=== PATIENT | female | born 1965 | race Caucasian/White ===

== ENCOUNTER → 2017-06-11 | Outpatient (CLI) | payer BC ==
[~2017-06-11] MED LIST: CALC-494 PO; CALC200T5 PO; CALCIUM CITRATE PO; CYAN1KIT3 INJ; ERGO1CAP35 PO; FERRTAB18 PO; KETO10TA PO; MECL1TAB42 PO; MISO100T PO; MULT-1027; MULT-506 PO; ONDA4TAB46 PO; PHEN15CA PO; PRED20TA PO; PREDPOW63 PO; PRLSR20 PO; RANI300T2 PO; TOPI200T6 PO; TOPI25TA10 PO; TOPI25TA99 PO; ZOLP10TA6 PO; [UNRECOGNIZED DRUG - CODE] PO
--- NOTE | 2017-06-11 10:15 | DIAGNOSTIC IMAGING REPORT ---
(BARIUM SWALLOW) ESOPHAGUS CLINICAL HISTORY: SORE THROAT, R/O ESOPHAGEAL DYSMOTILITY/SPASM COMPARISON STUDY: None. FLUOROSCOPY TIME: 1.5 minutes. FINDINGS: Esophageal motility was normal. No esophageal mass or stricture was identified. There are consistent with Anamika-en-Y gastric bypass. The gastrojejunal anastomosis is patent. No contrast extravasation was identified. No reflux was elicited. No definite hiatal hernia was identified. IMPRESSION: Unremarkable barium swallow status post Anamika-en-Y gastric bypass. Electronically signed by: uYng Oconnell M.D. 06/11/2017 10:14 AM Dictated Date/Time: 06/11/2017 9:51 AM
== END | disposition home or self-care (01) ==
LOC: C.RAD 09:17
PROVIDERS: ATTEND Nurse Practitioner
DX: J02.9 Acute pharyngitis, unspecified (principal); Z98.84 Bariatric surgery status

== ENCOUNTER 2018-01-31 11:41 | Observation (INO) | payer BC ==
[~2018-01-31] VITALS: Ht 160 cm; Wt 65.3 kg
[~2018-01-31 11:41] MED LIST changes: -CALC-494 PO; -CALC200T5 PO; -CYAN1KIT3 INJ; -FERRTAB18 PO; -MECL1TAB42 PO; -ONDA4TAB46 PO; -PHEN15CA PO; -PRED20TA PO; -TOPI200T6 PO; -TOPI25TA10 PO; -ZOLP10TA6 PO; -[UNRECOGNIZED DRUG - CODE] PO
[2018-01-31] MEDS ORDERED: SODIUM CHLORIDE 0.9% 500ML 500 ML IV STA (12:09)
[2018-01-31] MEDS ORDERED: CALC200T5 PO (12:15)
[2018-01-31] MEDS ORDERED: [UNRECOGNIZED DRUG - CODE] PO (12:15)
[2018-01-31] MEDS ORDERED: MULT-506 PO (12:15)
[2018-01-31] MEDS ORDERED: TOPI25TA10 PO (12:15)
[2018-01-31] MEDS ORDERED: ONDA4TAB46 PO (12:15)
[2018-01-31] MEDS ORDERED: KETO10TA PO (12:15)
[2018-01-31] MEDS ORDERED: PRLSR20 PO (12:15)
[2018-01-31] MEDS ORDERED: PRED20TA PO (12:15)
[2018-01-31] MEDS ORDERED: RANI300T2 PO (12:15)
--- NOTE | 2018-01-31 12:21 | EMERGENCY ROOM VISIT NOTE ---
History Report prepared by Salena: Dawson Veloz Under the Supervision of: Dr. Artur Teague M.D. First contact with patient: 11:57 Chief Complaint: SHORTNESS OF BREATH Stated Complaint: SOB History of Present Illness The patient is a 52 year old female who presents to the Emergency Room with complaints of intermittent shortness of breath beginning today. The patient reports that her symptoms are worsened with exertion, such as using stairs or lifting her arms. She denies current chest pain, fevers, chills, nausea, vomiting, rectal or vaginal bleeding, trauma, or urinary symptoms. She denies a history of blood clots in her lungs or legs. She notes a gastric bypass 7 years ago, and states that she received an iron infusion 6 months ago. Source of History: patient Onset: today Position: other (lungs) Quality: other (SOB) Timing: intermittent Modifying Factors (Relieving): exertion (using stairs, lifting arms) Associated Symptoms: No fevers, No chills, No chest pain, No nausea, No vomiting, No urinary symptoms Note: denies rectal bleeding or trauma Review of Systems See HPI for pertinent positives and negatives. A total of ten systems were reviewed and were otherwise negative. Past Medical & Surgical Medical Problems: (1) GERD (gastroesophageal reflux disease) (2) Hypermenorrhea (3) Iron deficiency anemia (4) Migraines (5) Vertigo (6) Vitamin D deficiency Surgical Problems: (1) History of gastric bypass Family History Cancer Diabetes mellitus FHx: gallbladder disease Heart disease Hypertension Social History Smoking Status: Never Smoker Marital Status: Occupation Status: employed Current/Historical Medications Scheduled Calcium Citrate-Vitamin D (Calcium Citrate + D3 200-250 mg-Unit), 1 TAB PO BID Cyanocobalamin (B-12 Compliance Injection), 1 DOSE INJ MONTHLY Ergocalciferol (Drisdol), 50,000 UNITS PO WK Iron-Vitamin C (Vitron-C), 1 TAB PO DAILY Multivitamin (Multivitamin), 1 TAB PO BID Omeprazole (Prilosec), 20 MG PO DAILY Prednisone (Prednisone), 1 DOSE PO UD Ranitidine (Zantac), 300 MG PO HS Topiramate (Topamax), 75 MG PO HS Scheduled PRN Ketorolac (Toradol), 10 MG PO UD PRN for Migraine Meclizine Hcl (Meclizine Hcl), 2 TAB PO TID PRN for Dizziness or Vertigo Ondansetron Hcl (Zofran), 1 TAB PO UD PRN for Nausea Phentermine Hcl (Phentermine Hcl), 1 CAP PO DAILY PRN for appetite Zolpidem Tartrate (Zolpidem Tartrate), 1 TAB PO HS PRN for Insomnia Allergies Coded Allergies: Conjugated Estrogens (Unverified Allergy, Intermediate, RASH, 01/31/18) Hydrocodone (Unverified Allergy, Intermediate, GI SYMPTOMS, 01/31/18) Codeine (Unverified Allergy, Unknown, NAUSEA AND VOMITING,DIZZY, 01/31/18) Physical Exam Vital Signs Date Time Temp Pulse Resp B/P (MAP) Pulse Ox O2 Delivery O2 Flow Rate FiO2 01/31/18 14:39 89 17 116/78 100 Room Air 01/31/18 13:40 86 115/84 100 Room Air 01/31/18 12:27 100 Room Air 01/31/18 12:25 86 01/31/18 12:07 100 Room Air 01/31/18 11:43 36.6 90 18 124/88 100 Room Air Physical Exam GENERAL: Awake, alert, mild pallor. NAD HENT: Normocephalic, atraumatic. EYES: Normal conjunctiva. Sclera non-icteric. PERRL. No anisocoria. NECK: Supple. No nuchal rigidity. FROM. RESPIRATORY: CTAB, no rhonchi, wheezing, crackles CARDIAC: RRR, no MRG ABDOMEN: Soft, NTND, BS+ MSK: No chest wall TTP, trace pretibial LE edema B/L. Negative Homans's sign. NEURO: GCS 15, CN 2-12 intact, moves all 4s on command SKIN: No rash or jaundice noted. Mild pallor. Medical Decision & Procedures ER Provider Diagnostic Interpretation: Radiology results as stated below per my review and radiologist interpretation: CT ANGIOGRAM OF THE CHEST CLINICAL HISTORY: Shortness of breath COMPARISON STUDY: Chest x-ray dated 01/31/2018 TECHNIQUE: Following the IV administration of 74 mL of Optiray-320, CT angiogram of the thorax was performed from the thoracic inlet to the lung bases utilizing the pulmonary embolus protocol. Images are reviewed in the axial, sagittal, and coronal planes. IV contrast was administered without complication. MIP imaging was performed. A dose lowering technique was utilized adhering to the principles of ALARA. CT DOSE: 195.80 mGy.cm FINDINGS: There are postsurgical changes of a prior gastric bypass No pathologically enlarged axillary mediastinal or hilar lymph nodes were visualized. There was no evidence of thoracic aortic dilatation. There were no pulmonary artery filling defects to indicate acute pulmonary embolism. No pleural effusions are visualized. There was no evidence of focal pulmonary consolidation. There is a right apical 3 mm pulmonary nodule. In a low risk patient, no further follow-up is necessary. IMPRESSION: 1. No evidence of acute pulmonary embolism 2. No evidence of focal pulmonary consolidation. Electronically signed by: Angel Munson M.D. 01/31/2018 3:40 PM Dictated Date/Time: 01/31/2018 3:32 PM CHEST 2 VIEWS ROUTINE HISTORY: 52 years-old Female EVALUATE RESPIRATORY DISTRESS.DYSPNEA acute respiratory distress COMPARISON: Acute abdominal series radiographs 04/03/2010 TECHNIQUE: PA and lateral views of the chest FINDINGS: Cardiomediastinal and hilar silhouettes are within normal limits. Lungs are mildly hyperinflated. Nipple shadow projects over the left lung base laterally. There is no pneumothorax, pleural effusion, focal airspace consolidation or overt pulmonary edema. The bones of the chest appear grossly intact. Surgical clips of the abdominal right upper quadrant suggest prior cholecystectomy. IMPRESSION: Mild hyperinflation without acute process. The above report was generated using voice recognition software. It may contain grammatical, syntax or spelling errors. Electronically signed by: Jose Martin Anand M.D. 01/31/2018 1:06 PM Laboratory Results Test 01/31/18 12:26 01/31/18 13:10 Immature Granulocyte % (Auto) 0.2 % White Blood Count 5.78 K/uL (4.8-10.8) Red Blood Count 4.44 M/uL (4.2-5.4) Hemoglobin 14.1 g/dL (12.0-16.0) Hematocrit 41.7 % (37-47) Mean Corpuscular Volume 93.9 fL (80-100) Mean Corpuscular Hemoglobin 31.8 pg (25-34) Mean Corpuscular Hemoglobin Concent 33.8 g/dl (32-36) Platelet Count 279 K/uL (130-400) Mean Platelet Volume 9.3 fL (7.4-10.4) Neutrophils (%) (Auto) 59.0 % Lymphocytes (%) (Auto) 31.1 % Monocytes (%) (Auto) 6.6 % Eosinophils (%) (Auto) 2.6 % Basophils (%) (Auto) 0.5 % Neutrophils # (Auto) 3.41 K/uL (1.4-6.5) Lymphocytes # (Auto) 1.80 K/uL (1.2-3.4) Monocytes # (Auto) 0.38 K/uL (0.11-0.59) Eosinophils # (Auto) 0.15 K/uL (0-0.5) Basophils # (Auto) 0.03 K/uL (0-0.2) Immature Granulocyte # (Auto) 0.01 K/uL (0.00-0.02) Prothrombin Time 9.8 SECONDS (9.0-12.0) Prothromb Time International Ratio 0.9 (0.9-1.1) Activated Partial Thromboplast Time 21.9 SECONDS (21.0-31.0) Partial Thromboplastin Ratio 0.8 D-Dimer 560 ug/L FEU (0-500) Total Bilirubin 0.4 mg/dl (0.2-1) Alanine Aminotransferase (ALT/SGPT) 26 U/L (12-78) Alkaline Phosphatase 114 U/L (45-117) Pro-B-Type Natriuretic Peptide 125 pg/ml (0-900) Total Protein 7.7 gm/dl (6.4-8.2) Albumin 3.8 gm/dl (3.4-5.0) Globulin 3.9 gm/dl (2.5-4.0) Albumin/Globulin Ratio 1.0 (0.9-2) Thyroid Stimulating Hormone (TSH) 1.720 uIu/ml (0.300-4.500) Magnesium Level 2.3 mg/dl (1.8-2.4) Aspartate Amino Transf (AST/SGOT) 15 U/L (15-37) Laboratory results reviewed by me Medications Administered Medications (Trade) Dose Ordered Sig/Nanette Route Start Time Stop Time Status Last Admin Dose Admin Sodium Chloride 500 ml @ 500 mls/hr Q1H STAT IV 01/31/18 12:09 01/31/18 13:08 DC 01/31/18 12:30 500 MLS/HR ECG Per My Interpretation Indication: SOB/dyspnea Rate (beats per minute): 83 Rhythm: normal sinus Findings: other (normal intervals and axis. No STS changes or TWI.) ED Course 1205: The patient was evaluated in room C10. A complete history and physical exam was performed. 1311: I updated with the patient on her blood work results. 1406: I updated with the patient, who is going to get a scan. 1550: I consulted Dr. Denys Suarez. He recommends a 23 hour observation period and a stress echocardiogram in the morning. 1606: I consulted Sarika Khan PA-C: [facility] Hospitalist. She will reevaluate the patient for hospitalization. Medical Decision Nursing notes reviewed. Ancillary studies and prior records reviewed. The patient is a 52 year old female who presents to the Emergency Room with complaints of intermittent shortness of breath beginning today. Differential diagnosis: Etiologies such as infections, reactive airway disease, pneumonia, pneumothorax , COPD, CHF, cardiac ischemia, pulmonary embolism, musculoskeletal, gastrointestinal, as well as others were entertained. Patient was seen and evaluated the bedside. There was concern as the patient did have some exertional dyspnea. Patient denies any active chest pain or shortness of breath while seated. Patient denies any orthopnea. Patient does have chronic lower extremity swelling but no acute changes. Patient denies prior history of DVT or PE. Patient did blood work completed, EKG, troponin, BNP, chest x-ray. The patient was also given IV fluids. Initial blood work EKG and chest x-ray were fairly unremarkable. The patient again was still asymptomatic. Patient did have a d-dimer that was obtained which is elevated so CT PE protocol was performed. The patient had no evidence of consolidation or evidence of any fracture or PE. I did discuss case with the on-call recycling program manager who stated that the patient may benefit from a stress echocardiogram in the morning. Patient was admitted to the medicine service. Medication Reconcilliation Current Medication List: was personally reviewed by me Blood Pressure Screening Patient's blood pressure: Normal blood pressure Blood pressure disposition: Did not require urgent referral Consults Time Called: 1545 Consulting Physician: Dr. Denys Suarez Returned Call: [address] Denys Suarez. He recommends a 23 hour observation period and a stress echocardiogram in the morning. Additional Consults: Time Called: 1555 Consulted Physician: Sarkia Khan [facility]-C[facility] Return[facility] Call: [phone] Additional Comments: I consulted Sarika Khan PA-C: [facility] Hospitalist. She will reevaluate the patient for hospitalization. Impression Primary Impression: Exertional dyspnea Scribe Attestation The scribe's documentation has been prepared under my direction and personally reviewed by me in its entirety. I confirm that the note above accurately reflects all work, treatment, procedures, and medical decision making performed by me. Departure Information Referrals Jeancarlos Jack III, M.D. (PCP) Patient Instructions [facility]
[2018-01-31 12:37] LABS: BASO % 0.5 %; BASO ABS # 0.03 K/uL (0-0.2); EOS % 2.6 %; EOS ABS # 0.15 K/uL (0-0.5); HEMATOCRIT 41.7 % (37-47); HEMOGLOBIN 14.1 g/dL (12.0-16.0); IG# 0.01 K/uL (0.00-0.02); LYMPH % 31.1 %; MEAN CELL VOLUME 93.9 fL (80-100); MEAN CORPUSCULAR HEMOGLOBIN 31.8 pg (25-34); MEAN CORPUSCULAR HGB CONC 33.8 g/dl (32-36); MEAN PLATELET VOLUME 9.3 fL (7.4-10.4); MONO % 6.6 %; MONO ABS # 0.38 K/uL (0.11-0.59); NEUT ABS # 3.41 K/uL (1.4-6.5); PLATELET COUNT 279 K/uL (130-400); RED CELL DISTRIBUTION WIDTH CV 13.4 % (11.5-14.5); RED CELL DISTRIBUTION WIDTH SD 46.2 fL (36.4-46.3); WHITE BLOOD COUNT 5.78 K/uL (4.8-10.8)
[2018-01-31 12:59] LABS: ALBUMIN 3.8 gm/dl (3.4-5.0); ALT/SGPT 26 U/L (12-78); BLOOD UREA NITROGEN 11 mg/dl (7-18); CALCIUM 8.8 mg/dl (8.5-10.1); CARBON DIOXIDE 24 mmol/L (21-32); CREATININE 0.78 mg/dl (0.60-1.20); GLUCOSE 78 mg/dl (70-99); SODIUM 140 mmol/L (136-145)
[2018-01-31 13:07] LABS: ALKALINE PHOSPHATASE 114 U/L (45-117); TOTAL PROTEIN 7.7 gm/dl (6.4-8.2)
--- NOTE | 2018-01-31 13:07 | DIAGNOSTIC IMAGING REPORT ---
CHEST 2 VIEWS ROUTINE HISTORY: 52 years-old Female EVALUATE RESPIRATORY DISTRESS.DYSPNEA acute respiratory distress COMPARISON: Acute abdominal series radiographs 04/03/2010 TECHNIQUE: PA and lateral views of the chest FINDINGS: Cardiomediastinal and hilar silhouettes are within normal limits. Lungs are mildly hyperinflated. Nipple shadow projects over the left lung base laterally. There is no pneumothorax, pleural effusion, focal airspace consolidation or overt pulmonary edema. The bones of the chest appear grossly intact. Surgical clips of the abdominal right upper quadrant suggest prior cholecystectomy. IMPRESSION: Mild hyperinflation without acute process. The above report was generated using voice recognition software. It may contain grammatical, syntax or spelling errors. Electronically signed by: Jose Martin Anand M.D. 01/31/2018 1:06 PM Dictated Date/Time: 01/31/2018 1:04 PM
[2018-01-31 13:10] LABS: INR 0.9 (0.9-1.1); PTT PATIENT 21.9 SECONDS (21.0-31.0)
[2018-01-31 13:49] LABS: POTASSIUM 4.1 mmol/L (3.5-5.1)
[2018-01-31] MEDS ORDERED: OPTIRAY 320 IV PRN (14:15)
--- NOTE | 2018-01-31 15:42 | DIAGNOSTIC IMAGING REPORT ---
CT ANGIOGRAM OF THE CHEST CLINICAL HISTORY: Shortness of breath COMPARISON STUDY: Chest x-ray dated 01/31/2018 TECHNIQUE: Following the IV administration of 74 mL of Optiray-320, CT angiogram of the thorax was performed from the thoracic inlet to the lung bases utilizing the pulmonary embolus protocol. Images are reviewed in the axial, sagittal, and coronal planes. IV contrast was administered without complication. MIP imaging was performed. A dose lowering technique was utilized adhering to the principles of ALARA. CT DOSE: 195.80 mGy.cm FINDINGS: There are postsurgical changes of a prior gastric bypass No pathologically enlarged axillary mediastinal or hilar lymph nodes were visualized. There was no evidence of thoracic aortic dilatation. There were no pulmonary artery filling defects to indicate acute pulmonary embolism. No pleural effusions are visualized. There was no evidence of focal pulmonary consolidation. There is a right apical 3 mm pulmonary nodule. In a low risk patient, no further follow-up is necessary. IMPRESSION: 1. No evidence of acute pulmonary embolism 2. No evidence of focal pulmonary consolidation. Electronically signed by: Angel Munson M.D. 01/31/2018 3:40 PM Dictated Date/Time: 01/31/2018 3:32 PM
[2018-01-31] MEDS ORDERED: ONDANSETRON INJ 2 MG/ML 2 ML VIAL IV PRN (16:30)
[2018-01-31] MEDS ORDERED: FERRTAB18 PO (16:43)
[2018-01-31] MEDS ORDERED: MECL1TAB42 PO (16:43)
[2018-01-31] MEDS ORDERED: PHEN15CA PO (16:43)
[2018-01-31] MEDS ORDERED: CALC-494 PO (16:43)
[2018-01-31] MEDS ORDERED: CYAN1KIT3 INJ (16:43)
[2018-01-31] MEDS ORDERED: ZOLP10TA6 PO (16:43)
[2018-01-31] MEDS ORDERED: MECLIZINE HCL 25 MG TAB PO PRN (16:45)
[2018-01-31] MEDS ORDERED: ZOLPIDEM TARTRATE 10 MG TAB PO PRN (16:45)
--- NOTE | 2018-01-31 16:49 | History and Physical ---
History & Physical Date & Time of Service: Jan 31, 2018 at 16:45 Chief Complaint: SOB Primary Care Physician: Jeancarlos Jack III, M.D. History of Present Illness Source: patient, clinic records, hospital records Patient is a 52yo F with a PMH of Vit D deficiency, iron deficiency anemia, h/o gastric bypass, chronic BLE edema and other medical problems listed below who presents with dyspnea on exertion x 2 days. Dyspnea has been occurring when patient climbs a flight of stairs or performs housework tasks, such as lifting a laundry basket. Associated with a "heaviness" in both arms that resolves once patient is at rest. Denies any lightheadedness, visual changes, chest pain, palpitations or worsening BLE edema. Endorses mild lower extremity edema for the past 8 months but states that it is at baseline. No personal history of heart disease, DVT/PE or congestive heart failure. Non-smoker. + Family history of heart disease on Dad's side of family. Past Medical/Surgical History Medical Problems: (1) Exertional dyspnea (2) GERD (gastroesophageal reflux disease) (3) Hypermenorrhea (4) Iron deficiency anemia (5) Migraines (6) Vertigo (7) Vitamin D deficiency Surgical Problems: (1) History of gastric bypass Family History Cancer Diabetes mellitus FHx: gallbladder disease Heart disease Hypertension Social History Smoking Status: Never Smoker Marital Status: Housing status: lives with family Occupational Status: employed Immunizations History of Influenza Vaccine: Yes Influenza Vaccine Date: Mar 27, 2010 History of Tetanus Vaccine?: Yes Tetanus Immunization Date: Feb 12, 2006 History of Pneumococcal: No History of Hepatitis B Vaccine: Yes Allergies Coded Allergies: Conjugated Estrogens (Unverified Allergy, Intermediate, RASH, 01/31/18) Hydrocodone (Unverified Allergy, Intermediate, GI SYMPTOMS, 01/31/18) Codeine (Unverified Allergy, Unknown, NAUSEA AND VOMITING,DIZZY, 01/31/18) Home Medications Scheduled Calcium Citrate-Vitamin D (Calcium Citrate + D3 200-250 mg-Unit), 1 TAB PO BID Cyanocobalamin (B-12 Compliance Injection), 1 DOSE INJ MONTHLY Ergocalciferol (Drisdol), 50,000 UNITS PO WK Iron-Vitamin C (Vitron-C), 1 TAB PO DAILY Multivitamin (Multivitamin), 1 TAB PO BID Omeprazole (Prilosec), 20 MG PO DAILY Prednisone (Prednisone), 1 DOSE PO UD Ranitidine (Zantac), 300 MG PO HS Topiramate (Topamax), 75 MG PO HS Scheduled PRN Ketorolac (Toradol), 10 MG PO UD PRN for Migraine Meclizine Hcl (Meclizine Hcl), 2 TAB PO TID PRN for Dizziness or Vertigo Ondansetron Hcl (Zofran), 1 TAB PO UD PRN for Nausea Phentermine Hcl (Phentermine Hcl), 1 CAP PO DAILY PRN for appetite Zolpidem Tartrate (Zolpidem Tartrate), 1 TAB PO HS PRN for Insomnia Review of Systems Ten systems reviewed and negative except as noted in the HPI. Physical Exam Vital Signs Date Time Temp Pulse Resp B/P (MAP) Pulse Ox O2 Delivery O2 Flow Rate FiO2 01/31/18 14:39 89 17 116/78 100 Room Air 01/31/18 13:40 86 115/84 100 Room Air 01/31/18 12:27 100 Room Air 01/31/18 12:25 86 01/31/18 12:07 100 Room Air 01/31/18 11:43 36.6 90 18 124/88 100 Room Air General Appearance: WD/WN, no apparent distress Head: normocephalic, atraumatic Eyes: normal inspection, PERRL, sclerae normal ENT: normal ENT inspection, hearing grossly normal, pharynx normal (mucous membranes moist) Neck: supple, thyroid normal, trachea midline Respiratory/Chest: chest non-tender, lungs clear, normal breath sounds, no respiratory distress, no accessory muscle use Cardiovascular: regular rate, rhythm, no murmur, normal peripheral pulses Abdomen/GI: non tender, soft, no organomegaly Extremities/Musculoskelatal: normal inspection, no calf tenderness, + pertinent finding (Trace bilateral BLE edema ) Neurologic/Psych: no motor/sensory deficits, alert, normal mood/affect, oriented x 3 Skin: normal color, warm/dry, no rash Diagnostics Laboratory Results Results Past 24 Hours Test 01/31/18 12:26 01/31/18 13:10 Range/Units White Blood Count 5.78 4.8-10.8 K/uL Red Blood Count 4.44 4.2-5.4 M/uL Hemoglobin 14.1 12.0-16.0 g/dL Hematocrit 41.7 37-47 % Mean Corpuscular Volume 93.9 80-100 fL Mean Corpuscular Hemoglobin 31.8 25-34 pg Mean Corpuscular Hemoglobin Concent 33.8 32-36 g/dl Platelet Count 279 130-400 K/uL Mean Platelet Volume 9.3 7.4-10.4 fL Neutrophils (%) (Auto) 59.0 % Lymphocytes (%) (Auto) 31.1 % Monocytes (%) (Auto) 6.6 % Eosinophils (%) (Auto) 2.6 % Basophils (%) (Auto) 0.5 % Neutrophils # (Auto) 3.41 1.4-6.5 K/uL Lymphocytes # (Auto) 1.80 1.2-3.4 K/uL Monocytes # (Auto) 0.38 0.11-0.59 K/uL Eosinophils # (Auto) 0.15 0-0.5 K/uL Basophils # (Auto) 0.03 0-0.2 K/uL RDW Standard Deviation 46.2 36.4-46.3 fL RDW Coefficient of Variation 13.4 11.5-14.5 % Immature Granulocyte % (Auto) 0.2 % Immature Granulocyte # (Auto) 0.01 0.00-0.02 K/uL Prothrombin Time 9.8 9.0-12.0 SECONDS Prothromb Time International Ratio 0.9 0.9-1.1 Activated Partial Thromboplast Time 21.9 21.0-31.0 SECONDS Partial Thromboplastin Ratio 0.8 D-Dimer 560 0-500 ug/L FEU Sodium Level 140 136-145 mmol/L Potassium Level 4.1 3.5-5.1 mmol/L Chloride Level 109 98-107 mmol/L Carbon Dioxide Level 24 21-32 mmol/L Anion Gap 7.0 3-11 mmol/L Blood Urea Nitrogen 11 7-18 mg/dl Creatinine 0.78 0.60-1.20 mg/dl Est Creatinine Clear Calc Drug Dose 76.6 ml/min Estimated GFR () 101.3 Estimated GFR (Non- 87.4 BUN/Creatinine Ratio 14.5 10-20 Random Glucose 78 70-99 mg/dl Calcium Level 8.8 8.5-10.1 mg/dl Magnesium Level 2.3 1.8-2.4 mg/dl Total Bilirubin 0.4 0.2-1 mg/dl Aspartate Amino Transf (AST/SGOT) 15 15-37 U/L Alanine Aminotransferase (ALT/SGPT) 26 12-78 U/L Alkaline Phosphatase 114 45-117 U/L Troponin I < 0.015 0-0.045 ng/ml Pro-B-Type Natriuretic Peptide 125 0-900 pg/ml Total Protein 7.7 6.4-8.2 gm/dl Albumin 3.8 3.4-5.0 gm/dl Globulin 3.9 2.5-4.0 gm/dl Albumin/Globulin Ratio 1.0 0.9-2 Thyroid Stimulating Hormone (TSH) 1.720 0.300-4.500 uIu/ml Diagnostic Radiology CXR: IMPRESSION: Mild hyperinflation without acute process. Chest/thorax CTA: IMPRESSION: 1. No evidence of acute pulmonary embolism 2. No evidence of focal pulmonary consolidation. EKG NSR at 83 bpm. Impression Assessment and Plan Patient is a 52yo F with a PMH of Vit D deficiency, iron deficiency anemia, h/o gastric bypass, chronic BLE edema and other medical problems listed below who presents with dyspnea on exertion x 2 days. Exertional dyspnea -Acute DELGADILLO x 2 days, associated with heaviness in arms -Evaluating as an anginal equivalent -EKG with normal sinus rhythm -Initial troponin negative. Continue trending -D dimer mildly elevated, but chest/thorax CTA without evidence of PE or consolidation -Fasting lipid panel and hgb a1c in AM -Baby aspirin daily -Plan for stress echo in AM as long as troponin is negative x 3 Iron deficiency anemia -H/o gastric bypass -Hgb stable at 14.1 -Continue iron supplement Vitamin D deficiency -H/o gastric bypass -Continue home supplementation GERD -Continue PPI, H2 james H/o migraines -Asymptomatic currently -Continue Topamax for prophylaxis Insomnia -Ambien PRN DVT Ppx: Ranjit hurtado Code status: FULL PCP: Marcie Dispo: Observation telemetry. Plan to return home once medically stable. Patient seen in collaboration with Dr. Jane. Please see addendum. ADDENDUM: This is a 52 year old female with a past medical history of gastric bypass surgery, GERD, migraines, vitamin D deficiency, iron deficiency - presents with dyspnea on exertion, trace bilateral lower extremity edema. Was seen by cardiology and due to family history - here for stress echo. Due to gastric bypass hx. - holding off on aspirin unless coronary artery disease detected. Trend cardiac enzymes, monitor in tele. Resuscitation Status VTE Prophylaxis Will order VTE Prophylaxis: Yes
[2018-01-31 17:15] VITALS: O2SAT 100
[2018-01-31] MEDS ORDERED: IV FLUIDS COMPLETED PRN (17:15)
[2018-01-31 18:26] VITALS: Ht 160 cm; Wt 65.3 kg
[2018-01-31] MEDS: MULTIVITAMIN TAB PO SCH (20:11)
[2018-01-31] MEDS: CALCIUM 600MG + VIT D 400 IU TAB PO SCH (20:11)
[2018-01-31] MEDS ORDERED: RANITIDINE HCL 150 MG TAB PO SCH (21:00)
[2018-01-31] MEDS ORDERED: TOPIRAMATE 25 MG TAB PO SCH (21:00)
[2018-01-31 22:57] VITALS: BP 84/60; PULSE 91; TEMP 36.7; O2SAT 96
[2018-01-31 23:51] VITALS: BP 89/60
[2018-02-01] MEDS: ACETAMINOPHEN 325 MG TAB PO PRN ×3 (02:01→11:35)
[2018-02-01 03:41] VITALS: BP 105/73; PULSE 85; TEMP 36.8; O2SAT 99
[2018-02-01 06:17] LABS: HEMATOCRIT 39.3 % (37-47); HEMOGLOBIN 12.7 g/dL (12.0-16.0); MEAN CELL VOLUME 94.9 fL (80-100); MEAN CORPUSCULAR HEMOGLOBIN 30.7 pg (25-34); MEAN CORPUSCULAR HGB CONC 32.3 g/dl (32-36); MEAN PLATELET VOLUME 9.2 fL (7.4-10.4); PLATELET COUNT 265 K/uL (130-400); RED CELL DISTRIBUTION WIDTH CV 13.4 % (11.5-14.5); RED CELL DISTRIBUTION WIDTH SD 46.4 fL (36.4-46.3)
[2018-02-01 06:55] LABS: CALCIUM 8.6 mg/dl (8.5-10.1); CREATININE 0.65 mg/dl (0.60-1.20); POTASSIUM 3.6 mmol/L (3.5-5.1)
[2018-02-01 07:24] LABS: HEMOGLOBIN A1C 5.2 % (4.5-5.6)
[2018-02-01 07:50] VITALS: BP 116/74; PULSE 82; TEMP 36.6; O2SAT 100
[2018-02-01] MEDS: CALCIUM 600MG + VIT D 400 IU TAB PO SCH (08:10)
[2018-02-01] MEDS: MULTIVITAMIN TAB PO SCH (08:10)
[2018-02-01] MEDS ORDERED: PANTOprazole SOD 40 MG TAB PO SCH (09:00)
[2018-02-01] MEDS ORDERED: ASCORBIC ACID 500 MG TAB PO SCH (09:00)
[2018-02-01] MEDS ORDERED: FERROUS SULFATE 325 MG TAB PO SCH (09:00)
[2018-02-01] MEDS ORDERED: ASPIRIN 81 MG ECTAB PO SCH (09:00)
--- NOTE | 2018-02-01 09:38 | Progress Note ---
Progress Note Date of Service Feb 01, 2018. Progress Note nonischemic exercise stress echocardiogram no arrhythmias no cardiac source of dyspnea
--- NOTE | 2018-02-01 10:21 | Progress Note ---
Internal Med Progress Note Date of Service: Feb 01, 2018. Provider Documentation: SUBJECTIVE: Patient seen and examined after the stress echocardiogram. Patient denies chest pain or shortness of breath. Denies blood in urine or in stool. OBJECTIVE: Exam: General- no acute distress Eyes- EOMI Neck- no JVD Lungs- clear to auscultation bilaterally Heart- mildly tachycardic after the stress echo Abdomen- soft, nontender, positive bowel sounds Extremities- no edema Neuro- awake and oriented x 3, no focal deficits ASSESSMENT & PLAN: Hospital Course and Discharge Plan Patient is a 52yo F with a PMH of Vit D deficiency, iron deficiency anemia, h/o gastric bypass, chronic BLE edema and other medical problems listed below who presents with dyspnea on exertion x 2 days. Exertional dyspnea -Acute DEGLADILLO x 2 days, associated with heaviness in arms -D dimer mildly elevated, but chest/thorax CTA without evidence of Pulmonary embolism or consolidation -normal lipids and normal HbA1c, acute coronary syndrome was ruled out with negative troponins and nonischemic exercise stress echocardiogram -no supplemental oxygen requirements -Patient to be discharged and follow up with primary medical doctor Iron deficiency anemia (normal hemoglobin on admission) history of gastric bypass -Continue iron supplement Vitamin D deficiency -H/o gastric bypass -Continue home supplementation GERD -Continue PPI, H2 james H/o migraines -Asymptomatic currently -Continue Topamax for prophylaxis Insomnia -Lucilleien PRN Discharge diagnosis Dyspnea on exertion Discharge Instructions 02/08/2018 11:00 AM Jeancarlos Jack III, MD Family Practice [facility] 02/28/2018 9:30 AM [facility]/25/2018 3:00 PM Victoria Hines PA-C Hematology/Oncology [facility] Vital Signs: Date Time Temp Pulse Resp B/P (MAP) Pulse Ox O2 Delivery O2 Flow Rate FiO2 02/01/18 07:50 36.6 82 18 116/74 (88) 100 02/01/18 07:40 Room Air 02/01/18 03:41 36.8 85 20 105/73 (84) 99 Room Air 02/01/18 00:00 Room Air 01/31/18 23:51 89/60 (70) 01/31/18 22:57 36.7 91 20 84/60 (68) 96 Room Air 01/31/18 18:26 Room Air 01/31/18 17:15 82 110/80 100 01/31/18 14:39 89 17 116/78 100 Room Air 01/31/18 13:40 86 115/84 100 Room Air 01/31/18 12:27 100 Room Air 01/31/18 12:25 86 01/31/18 12:07 100 Room Air 01/31/18 11:43 36.6 90 18 124/88 100 Room Air Lab Results: Results Past 24 Hours Test 01/31/18 12:26 01/31/18 13:10 01/31/18 18:30 02/01/18 00:34 Range/Units White Blood Count 5.78 4.8-10.8 K/uL Red Blood Count 4.44 4.2-5.4 M/uL Hemoglobin 14.1 12.0-16.0 g/dL Hematocrit 41.7 37-47 % Mean Corpuscular Volume 93.9 80-100 fL Mean Corpuscular Hemoglobin 31.8 25-34 pg Mean Corpuscular Hemoglobin Concent 33.8 32-36 g/dl Platelet Count 279 130-400 K/uL Mean Platelet Volume 9.3 7.4-10.4 fL Neutrophils (%) (Auto) 59.0 % Lymphocytes (%) (Auto) 31.1 % Monocytes (%) (Auto) 6.6 % Eosinophils (%) (Auto) 2.6 % Basophils (%) (Auto) 0.5 % Neutrophils # (Auto) 3.41 1.4-6.5 K/uL Lymphocytes # (Auto) 1.80 1.2-3.4 K/uL Monocytes # (Auto) 0.38 0.11-0.59 K/uL Eosinophils # (Auto) 0.15 0-0.5 K/uL Basophils # (Auto) 0.03 0-0.2 K/uL RDW Standard Deviation 46.2 36.4-46.3 fL RDW Coefficient of Variation 13.4 11.5-14.5 % Immature Granulocyte % (Auto) 0.2 % Immature Granulocyte # (Auto) 0.01 0.00-0.02 K/uL Prothrombin Time 9.8 9.0-12.0 SECONDS Prothromb Time International Ratio 0.9 0.9-1.1 Activated Partial Thromboplast Time 21.9 21.0-31.0 SECONDS Partial Thromboplastin Ratio 0.8 D-Dimer 560 0-500 ug/L FEU Sodium Level 140 136-145 mmol/L Potassium Level 4.1 3.5-5.1 mmol/L Chloride Level 109 98-107 mmol/L Carbon Dioxide Level 24 21-32 mmol/L Anion Gap 7.0 3-11 mmol/L Blood Urea Nitrogen 11 7-18 mg/dl Creatinine 0.78 0.60-1.20 mg/dl Est Creatinine Clear Calc Drug Dose 76.6 ml/min Estimated GFR () 101.3 Estimated GFR (Non- 87.4 BUN/Creatinine Ratio 14.5 10-20 Random Glucose 78 70-99 mg/dl Calcium Level 8.8 8.5-10.1 mg/dl Magnesium Level 2.3 1.8-2.4 mg/dl Total Bilirubin 0.4 0.2-1 mg/dl Aspartate Amino Transf (AST/SGOT) 15 15-37 U/L Alanine Aminotransferase (ALT/SGPT) 26 12-78 U/L Alkaline Phosphatase 114 45-117 U/L Troponin I < 0.015 < 0.015 < 0.015 0-0.045 ng/ml Pro-B-Type Natriuretic Peptide 125 0-900 pg/ml Total Protein 7.7 6.4-8.2 gm/dl Albumin 3.8 3.4-5.0 gm/dl Globulin 3.9 2.5-4.0 gm/dl Albumin/Globulin Ratio 1.0 0.9-2 Thyroid Stimulating Hormone (TSH) 1.720 0.300-4.500 uIu/ml Test 02/01/18 05:46 Range/Units White Blood Count 4.80 4.8-10.8 K/uL Red Blood Count 4.14 4.2-5.4 M/uL Hemoglobin 12.7 12.0-16.0 g/dL Hematocrit 39.3 37-47 % Mean Corpuscular Volume 94.9 80-100 fL Mean Corpuscular Hemoglobin 30.7 25-34 pg Mean Corpuscular Hemoglobin Concent 32.3 32-36 g/dl RDW Standard Deviation 46.4 36.4-46.3 fL RDW Coefficient of Variation 13.4 11.5-14.5 % Platelet Count 265 130-400 K/uL Mean Platelet Volume 9.2 7.4-10.4 fL Sodium Level 142 136-145 mmol/L Potassium Level 3.6 3.5-5.1 mmol/L Chloride Level 110 98-107 mmol/L Carbon Dioxide Level 25 21-32 mmol/L Anion Gap 7.0 3-11 mmol/L Blood Urea Nitrogen 10 7-18 mg/dl Creatinine 0.65 0.60-1.20 mg/dl Est Creatinine Clear Calc Drug Dose 92.0 ml/min Estimated GFR () 118.3 Estimated GFR (Non- 102.1 BUN/Creatinine Ratio 15.1 10-20 Random Glucose 71 70-99 mg/dl Estimated Average Glucose 103 mg/dl Hemoglobin A1c 5.2 4.5-5.6 % Calcium Level 8.6 8.5-10.1 mg/dl Triglycerides Level 55 0-150 mg/dl Cholesterol Level 156 0-200 mg/dl HDL Cholesterol 69 mg/dl LDL Cholesterol, Calculated 76 mg/dl VLDL Cholesterol, Calculated 11 mg/dl Cholesterol/HDL Ratio 2.3
--- NOTE | 2018-02-01 10:45 | EXERCISE STRESS ECHO ---
*NOTICE TO RECE[employer]ING [employer] This information is strictly Confidential and protected under [place] law. [place] law prohibits you from making any further disclosure of this information unless further disclosure is expressly permitted by the written consent of the person to whom it pertains or is authorized by law. A general authorization for the release of medical or other information is not sufficient for this purpose. Hospital accepts no responsibility if the information is made available to any other person, INCLUDING THE PATIENT. Interpretation Summary * Name: BETTY DILLON Study Date: 02/01/2018 08:18 AM BP: 122/78 mmHg * Patient Location: [facility]\S\N288\S\2 HR: 83 * : 1965 (M/d/yyyy) Gender: Female Height: 63 in * Age: 52 yrs Ethnicity: CA Weight: 143 lb * Ordering Physician: Sarika Khan * Performed By: Tonie Cook RCS * * Reason For Study: DYSPNEA * BSA: 1.7 m2 * -- Conclusions -- * Nonischemic exercise stress echocardiogram. * No arrhythmias. * Normal HR and BP response to exercise. * Testing terminated at patient request due to dizziness. * At rest, normal LV chamber size and wall thcikness. * Normal LV systolic function, EF 55-60%. * No segmental left ventricular wall motion abnormalities are noted. * Trace aortic regurgitation. Procedure Details * TST, CPT #[id number] * ECHO DOPPLER, CPT #[id number] * ECHO COLOR FLOW, CPT #[id number] Left Ventricle * The left ventricle is normal in size. * There is normal left ventricular wall thickness. * Ejection Fraction = 55-60%. * Left ventricular systolic function is normal. * No segmental left ventricular wall motion abnormalities are noted. * Resting wall motion: Normal. Stress wall motion: Appropriate increase in Left ventricular systolic function and decrease in cavity size. No stress induced segmental wall motion abnormalities. Right Ventricle * The right ventricular cavity size is normal (basal dimension <4.2 cm in right ventricular apical 4-chamber view). * The right ventricular systolic function is normal as assessed by tricuspid annular plane systolic excursion (TAPSE) (normal >1.5 cm). Atria * The left atrial size is normal. * Right atrial size is normal. * No ASD detected; PFO is not assessed. Mitral Valve * The mitral valve leaflets appear thickened, but open well. * There is no mitral valve stenosis. * There is no mitral regurgitation noted. Tricuspid Valve * The tricuspid valve is normal in structure and function. Aortic Valve * The aortic valve is trileaflet. * No hemodynamically significant valvular aortic stenosis. * Trace aortic regurgitation. * There is an eccentric jet of aortic insufficiency directed against the septum. Pulmonic Valve * The pulmonary valve is not well seen, but the Doppler examination is normal without significant regurgitation or stenosis. Great Vessels * The aortic root is normal size. Pericardium * There is no pericardial effusion. Stress Parameters * Normal baseline electrocardiogram. * Stress ECG: No ST changes. No arrhythmias. * No arrhythmia were noted with stress. * The stress portion of this study was personally supervised by the undersigned interpreting physician. * Rest heart rate was '83' BPM. * Rest blood pressure was '122/78' * Maximum heart rate achieved was 171 bpm. * Maximum heart rate was 101 % of maximum age-predicted heart rate. * Maximum blood pressure was '170/68' * Total exercise time was '7:48' * Maximum exercise MET level achieved was '9.70' METS * Maximum treadmill speed was '3.40' miles per hour. * Maximum treadmill elevation was '14.00'% grade. * Exercise was terminated due to 'target heart rate achieved.' * The patient exhibited dizziness during exercise. * Normal blood pressure response to exercise. Left Ventricular Diastolic Function * Grade I diastolic dysfunction, (abnormal relaxation pattern). MMode 2D Measurements and Calculations IVSd 1.5 cm IVSs 1.8 cm LVIDd 3.5 cm LVIDs 2.4 cm LVPWd 0.81 cm LVPWs 1.4 cm IVS/LVPW 1.8 FS 30.9 % EDV(Teich) 50.4 ml ESV(Teich) 20.3 ml EF(Teich) 59.7 % EDV(cubed) 42.4 ml ESV(cubed) 14.0 ml EF(cubed) 67.1 % % IVS thick 20.4 % % LVPW thick 70.5 % LV mass(C)d 124.7 grams LV mass(C)dI 74.4 grams/m\S\2 LV mass(C)s 131.8 grams LV mass(C)sI 78.6 grams/m\S\2 SV(Teich) 30.1 ml SI(Teich) 17.9 ml/m\S\2 SV(cubed) 28.4 ml SI(cubed) 17.0 ml/m\S\2 ACS 1.4 cm LA dimension 3.2 cm LVOT diam 2.0 cm LVOT area 3.2 cm\S\2 Doppler Measurements and Calculations MV E max tiburcio 72.9 cm/sec MV A max tiburcio 77.4 cm/sec MV E/A 0.94 MV dec time 0.18 sec Ao V2 max 126.7 cm/sec Ao max PG 6.4 mmHg Ao max PG (full) 1.7 mmHg CRISTOBAL(V,A) 2.7 cm\S\2 CRISTOBAL(V,D) 2.7 cm\S\2 LV V1 max PG 4.8 mmHg LV V1 max 109.1 cm/sec PA V2 max 85.6 cm/sec PA max PG 2.9 mmHg
--- NOTE | 2018-02-01 10:50 | Discharge Instructions ---
Discharge Instructions Date of Service Feb 01, 2018. Admission Reason for Admission: Exertional Dyspnea Discharge Discharge Diagnosis / Problem: dsypnea on exertion Discharge Goals Goal(s): Decrease discomfort Activity Recommendations Activity Limitations: per Instructions/Follow-up section Lifting Limitations: gradually increase as tolerated Exercise/Sports Limitations: as tolerated . Instructions / Follow-Up Instructions / Follow-Up Hospital Course and Discharge Plan Patient is a 52yo F with a PMH of Vit D deficiency, iron deficiency anemia, h/o gastric bypass, chronic BLE edema and other medical problems listed below who presents with dyspnea on exertion x 2 days. Exertional dyspnea -Acute DELGADILLO x 2 days, associated with heaviness in arms -D dimer mildly elevated, but chest/thorax CTA without evidence of Pulmonary embolism or consolidation -normal lipids and normal HbA1c, acute coronary syndrome was ruled out with negative troponins and nonischemic exercise stress echocardiogram -no supplemental oxygen requirements -Patient to be discharged and follow up with primary medical doctor Iron deficiency anemia (normal hemoglobin on admission) history of gastric bypass -Continue iron supplement Vitamin D deficiency -H/o gastric bypass -Continue home supplementation GERD -Continue PPI, H2 james H/o migraines -Asymptomatic currently -Continue Topamax for prophylaxis Insomnia -Ambien PRN Discharge diagnosis Dyspnea on exertion Discharge Instructions 02/08/2018 11:00 AM Jeancarlos Jack III, MD Family Practice [facility] 02/28/2018 9:30 AM [facility] 03/25/2018 3:00 PM Victoria Hines PA-C Hematology/Oncology [facility] Current Hospital Diet Patient's current hospital diet: AHA Diet (Heart Healthy) Discharge Diet Recommended Diet: AHA Diet (Heart Healthy) Pending Studies Studies pending at discharge: no Laboratory Results 02/01/18 05:46 02/01/18 05:46 Test 01/31/18 12:26 01/31/18 13:10 02/01/18 00:34 02/01/18 05:46 Immature Granulocyte % (Auto) 0.2 % White Blood Count 5.78 K/uL (4.8-10.8) Red Blood Count 4.44 M/uL (4.2-5.4) 4.14 M/uL (4.2-5.4) Hemoglobin 14.1 g/dL (12.0-16.0) Hematocrit 41.7 % (37-47) Mean Corpuscular Volume 93.9 fL (80-100) 94.9 fL (80-100) Mean Corpuscular Hemoglobin 31.8 pg (25-34) 30.7 pg (25-34) Mean Corpuscular Hemoglobin Concent 33.8 g/dl (32-36) 32.3 g/dl (32-36) Platelet Count 279 K/uL (130-400) Mean Platelet Volume 9.3 fL (7.4-10.4) 9.2 fL (7.4-10.4) Neutrophils (%) (Auto) 59.0 % Lymphocytes (%) (Auto) 31.1 % Monocytes (%) (Auto) 6.6 % Eosinophils (%) (Auto) 2.6 % Basophils (%) (Auto) 0.5 % Neutrophils # (Auto) 3.41 K/uL (1.4-6.5) Lymphocytes # (Auto) 1.80 K/uL (1.2-3.4) Monocytes # (Auto) 0.38 K/uL (0.11-0.59) Eosinophils # (Auto) 0.15 K/uL (0-0.5) Basophils # (Auto) 0.03 K/uL (0-0.2) Immature Granulocyte # (Auto) 0.01 K/uL (0.00-0.02) Prothrombin Time 9.8 SECONDS (9.0-12.0) Prothromb Time International Ratio 0.9 (0.9-1.1) Activated Partial Thromboplast Time 21.9 SECONDS (21.0-31.0) Partial Thromboplastin Ratio 0.8 D-Dimer 560 ug/L FEU (0-500) Total Bilirubin 0.4 mg/dl (0.2-1) Alanine Aminotransferase (ALT/SGPT) 26 U/L (12-78) Alkaline Phosphatase 114 U/L (45-117) Pro-B-Type Natriuretic Peptide 125 pg/ml (0-900) Total Protein 7.7 gm/dl (6.4-8.2) Albumin 3.8 gm/dl (3.4-5.0) Globulin 3.9 gm/dl (2.5-4.0) Albumin/Globulin Ratio 1.0 (0.9-2) Thyroid Stimulating Hormone (TSH) 1.720 uIu/ml (0.300-4.500) Magnesium Level 2.3 mg/dl (1.8-2.4) Aspartate Amino Transf (AST/SGOT) 15 U/L (15-37) Troponin I < 0.015 ng/ml (0-0.045) RDW Standard Deviation 46.4 fL (36.4-46.3) RDW Coefficient of Variation 13.4 % (11.5-14.5) Anion Gap 7.0 mmol/L (3-11) Est Creatinine Clear Calc Drug Dose 92.0 ml/min Estimated GFR () 118.3 Estimated GFR (Non- 102.1 BUN/Creatinine Ratio 15.1 (10-20) Estimated Average Glucose 103 mg/dl Hemoglobin A1c 5.2 % (4.5-5.6) Calcium Level 8.6 mg/dl (8.5-10.1) Triglycerides Level 55 mg/dl (0-150) Cholesterol Level 156 mg/dl (0-200) HDL Cholesterol 69 mg/dl LDL Cholesterol, Calculated 76 mg/dl VLDL Cholesterol, Calculated 11 mg/dl Cholesterol/HDL Ratio 2.3 Hemoglobin A1c Test 02/01/18 05:46 Range/Units Estimated Average Glucose 103 mg/dl Hemoglobin A1c 5.2 4.5-5.6 % Lipid Panel Test 02/01/18 05:46 Range/Units Triglycerides Level 55 0-150 mg/dl Cholesterol Level 156 0-200 mg/dl HDL Cholesterol 69 mg/dl Cholesterol/HDL Ratio 2.3 LDL Cholesterol, Calculated 76 mg/dl Medical Emergencies . Who to Call and When: Medical Emergencies: If at any time you feel your situation is an emergency, please call 911 immediately. . Non-Emergent Contact Non-Emergency issues call your: Primary Care Provider Call Non-Emergent contact if: you have any medication questions . . "Provider Documentation" section prepared by Hamilton Webster. .
--- NOTE | 2018-02-01 10:51 | Discharge Summary ---
Discharge Summary Date of Service Feb 01, 2018. Discharge Summary Admission Date: Jan 31, 2018 at 16:28 Discharge Date: Feb 01, 2018 Discharge Disposition: Home Principal Diagnosis: dyspnea on exertion Admission Information HPI (per Admitting provider): Patient is a 52yo F with a PMH of Vit D deficiency, iron deficiency anemia, h/o gastric bypass, chronic BLE edema and other medical problems listed below who presents with dyspnea on exertion x 2 days. Dyspnea has been occurring when patient climbs a flight of stairs or performs housework tasks, such as lifting a laundry basket. Associated with a "heaviness" in both arms that resolves once patient is at rest. Denies any lightheadedness, visual changes, chest pain, palpitations or worsening BLE edema. Endorses mild lower extremity edema for the past 8 months but states that it is at baseline. No personal history of heart disease, DVT/PE or congestive heart failure. Non-smoker. + Family history of heart disease on Dad's side of family. Physical Exam (per Admitting): General Appearance: WD/WN, no apparent distress Head: normocephalic, atraumatic Eyes: normal inspection, PERRL, sclerae normal ENT: normal ENT inspection, hearing grossly normal, pharynx normal (mucous membranes moist) Neck: supple, thyroid normal, trachea midline Respiratory/Chest: chest non-tender, lungs clear, normal breath sounds, no respiratory distress, no accessory muscle use Cardiovascular: regular rate, rhythm, no murmur, normal peripheral pulses Abdomen/GI: non tender, soft, no organomegaly Extremities/Musculoskelatal: normal inspection, no calf tenderness, + pertinent finding (Trace bilateral BLE edema ) Neurologic/Psych: no motor/sensory deficits, alert, normal mood/affect, oriented x 3 Skin: normal color, warm/dry, no rash Hospital Course Hospital Course and Discharge Plan Patient is a 52yo F with a PMH of Vit D deficiency, iron deficiency anemia, h/o gastric bypass, chronic BLE edema and other medical problems listed below who presents with dyspnea on exertion x 2 days. Exertional dyspnea -Acute DELGADILLO x 2 days, associated with heaviness in arms -D dimer mildly elevated, but chest/thorax CTA without evidence of Pulmonary embolism or consolidation -normal lipids and normal HbA1c, acute coronary syndrome was ruled out with negative troponins and nonischemic exercise stress echocardiogram -no supplemental oxygen requirements -Patient to be discharged and follow up with primary medical doctor Iron deficiency anemia (normal hemoglobin on admission) history of gastric bypass -Continue iron supplement Vitamin D deficiency -H/o gastric bypass -Continue home supplementation GERD -Continue PPI, H2 james H/o migraines -Asymptomatic currently -Continue Topamax for prophylaxis Insomnia -Ambien PRN Discharge diagnosis Dyspnea on exertion Discharge Instructions 02/08/2018 11:00 AM Jeancarlos Jack III, MD [facility] 02/28/2018 9:30 AM Keyon Josue[facility] 03/25/2018 3:00 PM Victoria Hines PA-C Hematology/Oncology [facility] Total time spent on discharge = This includes examination of the patient, discharge planning, medication reconciliation, and communication with other providers. Discharge Instructions see above
[2018-02-01 11:19] VITALS: BP 104/72; PULSE 83; TEMP 36.8; O2SAT 100
[2018-02-01 11:23] VITALS: BP 104/72; PULSE 83; TEMP 36.8; O2SAT 100
== END 2018-02-01 11:45 | disposition home or self-care (01) ==
LOC: C.EDB 11:42 → C.MED 16:28 → ENRESERV 16:52
PROVIDERS: ADMIT Family Medicine; ATTEND Hospitalist
DX: R06.09 Other forms of dyspnea (principal); K21.9 Gastro-esophageal reflux disease without esophagitis; D50.9 Iron deficiency anemia, unspecified; Z98.84 Bariatric surgery status; Z88.5 Allergy status to narcotic agent; E55.9 Vitamin D deficiency, unspecified